=== PATIENT | male | born 1990 | race African-American/Black ===

== ENCOUNTER 2016-05-13 22:16 | Emergency (ER) | payer OTHER ==
[~2016-05-13] VITALS: Ht 188 cm; Wt 77.1 kg
[2016-05-13 22:43] VITALS: BP 145/99
--- NOTE | 2016-05-13 23:33 | ED UPPER/LOWER EXTREMITY COMPL ---
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 NOT VISUALIZED IN TRIAGE. CURRENT WITH TETANUS Triage Nurses Notes Reviewed? yes Onset: Abrupt Duration: constant Timing: recent history Severity: mild Severity Numbers: 3 HPI: Patient is a 26-year-old male with an unremarkable past medical history which tetanus up-to-date and presents emergency room that yesterday evening he ACCIDENTLY cut the lateral aspect of his fifth digit of his RIGHT hand with a carving tool resulting in 2 lacerations which he states that he's been APPLYING second skin on the region. Patient presents today for concerns by his for suture repair. HE IS left arm dominant tetanus is up-to-date (JOHNATHAN LOGAN) Past History Travel History Traveled to [place] past 21 day No Medical History Any Pertinent Medical History? 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 No (JOHNATHAN LOGAN) Review of Systems Review of Systems Constitutional: Reports: no symptoms. EENTM: Reports: no symptoms. Respiratory: Reports: no symptoms. Cardiovascular: Reports: no symptoms. Gastrointestinal/Abdominal: Reports: no symptoms. Genitourinary: Reports: no symptoms. Musculoskeletal: Reports: see HPI. Skin: Reports: see HPI. Neurological/Psychological: Reports: no symptoms. Hematologic/Endocrine: Reports: see HPI, bleeding. Immunological: Reports: no symptoms. All Other Systems: Reviewed and Negative (JOHNATHAN LOGAN) Physical Exam Physical Exam General Appearance: no apparent distress, alert Neurologic/Tendon: normal sensation, normal motor functions, normal tendon functions, responds to pain, no evidence tendon injury, no pulse deficit Skin: normal color, warm/dry Comments: Well-developed well-nourished no apparent distress. HEENT: Atraumatic, extraocular motion intact Neck: Supple, no lymphadenopathy Back: Nontender Respiratory: No respiratory distress Extremities: N Right fifth digit of the hand full active range of motion full resisted range of motion no tendon deficit see diagram below Neuro: Alert and oriented x3 Psych: Mood affect normal, normal memory normal judgment. Diagram Hands Front 1) 5 mm mildly gaping superficial laceration noted No active bleeding 2) 5 mm mildly gaping superficial laceration noted no active bleeding noted (JOHNATHAN LOGAN) Progress Differential Diagnosis: arterial insufficiency, compartment syndrome, contusion, dislocation, DVT, fracture, gout, septic arthritis, sprain, tendon injury Plan of Care: Due to over 24 hours history of open wound that patient could deteriorate with suture placement and which I applied chlorhexidine to the region for cleaning and applied bacitracin bandage. Patient was strongly advised to monitor for signs infection HE WILL return to the emergency room and he will comply. No concern of fracture no concerns of tendon deficit (JOHNATHAN LOGAN) Departure Departure Disposition: HOME OR SELF CARE Condition: Stable Clinical Impression Primary Impression: Finger laceration Referrals: MJ JASON MD (PCP/Family) Additional Instructions: As discussed begin to apply bacitracin to the area once a day for the following 5 days then leave wound open for improvement of healing. If you note signs of infection redness, pain, swelling, discharge return to the emergency room. Follow-up with your primary care doctor in 1 week for recheck of symptoms. Try to keep area dry and clean as YOU can. Departure Forms: Customer Survey General Discharge Information Prescriptions: Current Visit Scripts No Known Home Medications (JOHNATHAN LOGAN) PA/DIRECTOR OF LEARNING Co-Sign Statement Statement: ED Attending supervision documentation- [] I saw and evaluated the patient. I have also reviewed all the pertinent lab results and diagnostic results. I agree with the findings and the plan of care as documented in the PA's/DIRECTOR OF LEARNING's documentation. [x] I have reviewed the ED Record and agree with the PA's/DIRECTOR OF LEARNING's documentation. [] Additions or exceptions (if any) to the PAs/DIRECTOR OF LEARNING's note and plan are summarized below: [] (JUAN PABLO STOKES,CAREY)
== END 2016-05-13 23:48 ==
LOC: ERH 22:16
DX: S61.217A Laceration without foreign body of left little finger without damage to nail, initial encounter (principal); W27.8XXA Contact with other nonpowered hand tool, initial encounter

== ENCOUNTER 2016-07-08 22:46 | Emergency (ER) | payer OTHER ==
[~2016-07-08] VITALS: Ht 188 cm; Wt 77.1 kg
--- NOTE | 2016-07-08 22:59 | ED CARDIAC/CP/PALPITATIONS ---
History of Present Illness General Chief Complaint: General Adult Stated Complaint: CHEST "POUNDING", FREQUENT URINATION,FEEL HOT [id number] Source: patient Exam Limitations: no limitations Vital Signs & Intake/Output Vital Signs & Intake/Output Vital Signs Date Time Temp Pulse Resp B/P Pulse O2 O2 Flow FiO2 Ox Delivery Rate 07/09 0222 97.0 72 18 126/82 100 Room Air 07/09 0000 99 Room Air 07/08 2253 98.7 86 18 158/96 99 Room Air ED Intake and Output 07/09 0000 07/08 1200 Intake Total Output Total Balance Patient 170 lb Weight Allergies Coded Allergies: NO KNOWN ALLERGIES (05/16/15) Reconcile Medications No Known Home Medications Triage Note: PT TO TRIAGE WITH C/O CHEST PRESSURE AND PALPITATIONS ON/OFF [id number]. PT DENIES SOB, DENIES ANY PAIN. REPORTS FREQUENT URINATION. EKG DONE IN [place]. VSS. KASIA MD IN TRIAGE FOR PT EVAL. Triage Nurses Notes Reviewed? yes Onset: Gradual Duration: week(s): Timing: recent history Quality/Severity: mild, moderate Location: central Radiation: no radiation Activities at Onset: none Prior Chest Pain/Card Workup: no prior chest pain Modifying Factors: Improves With: rest. Associated Symptoms: "Pounding" HPI: 26yo gentleman with 2 weeks of intermittent palpitations. "It feels like I have a pounding in my chest." He notes no diaphoresis, chest pain. He notes that he had been drinking an herbal tea that he stopped drinking 2 weeks ago. He notes he has been under stress. He denies alcohol, drugs, or excessive caffeine. Past History Travel History Traveled to [place] past 21 day No Medical History Any Pertinent Medical History? 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 No Review of Systems Review of Systems Constitutional: Reports: no symptoms. EENTM: Reports: no symptoms. Respiratory: Reports: no symptoms. Cardiovascular: Reports: no symptoms. GI: Reports: no symptoms. Genitourinary: Reports: no symptoms. Musculoskeletal: Reports: no symptoms. Skin: Reports: no symptoms. Neurological/Psychological: Reports: no symptoms. Hematologic/Endocrine: Reports: no symptoms. Immunologic/Allergic: Reports: no symptoms. All Other Systems: Reviewed and Negative Physical Exam Physical Exam General Appearance: well developed/nourished, no apparent distress Head: atraumatic, normal appearance Eyes: Bilateral: normal appearance. Ears, Nose, Throat: normal pharynx, normal ENT inspection Neck: normal inspection, supple, full range of motion Cardiovascular: regular rate/rhythm Gastrointestinal: normal bowel sounds, soft, non-tender, no organomegaly Back: normal inspection, normal range of motion Extremities: normal inspection, normal capillary refill Neurologic/Psych: no motor/sensory deficits, awake, alert, oriented x 3 Skin: intact, normal color, warm/dry Core Measures ACS in differential dx? No Severe Sepsis Present: No Septic Shock Present: No Progress Differential Diagnosis: pac's, pvc's, tachyarrhythmias vs other. Plan of Care: Orders Procedure Date/time Status THYROID STIMULATING HORMONE 07/08 2299 Complete TROPONIN LEVEL 07/08 2299 Complete D-DIMER 07/08 2299 Complete COMPREHENSIVE METABOLIC PANEL 07/08 2299 Complete CBC WITHOUT DIFFERENTIAL 07/08 2299 Complete EKG 07/09 2247 Active Laboratory Tests 07/08/16 2305: Anion Gap 15, Estimated GFR > 60, BUN/Creatinine Ratio 11.1, Glucose 87, Calcium 10.1, Total Bilirubin 0.7, AST 20, ALT 34, Alkaline Phosphatase 85, Troponin I < 0.01, Total Protein 7.9, Albumin 4.5, Globulin 3.4, Albumin/Globulin Ratio 1.3, TSH 4.120, D-Dimer 688 H, CBC w Diff NO MAN DIFF REQ, RBC 4.49 L, MCV 95.7 H, MCH 32.7 H, RDW 13.4, MPV 8.3, Gran % 38.2 L, Lymphocytes % 49.5, Monocytes % 8.3, Eosinophils % 3.4, Basophils % 0.6, Absolute Granulocytes 1.7, Absolute Lymphocytes 2.3, Absolute Monocytes 0.4, Absolute Eosinophils 0.2, Absolute Basophils 0, PUBS MCHC 34.1 Diagnostic Imaging: Viewed by Me: Radiology Read. Discussed w/RAD: Radiology Read. Radiology Impression: CT ANGIO... NO PE CXR Impression: no acute abnormality, no infiltrates, normal size heart, normal mediastinum Initial ED EKG: normal axis, normal intervals, normal p-waves, normal QRS complex, normal sinus rhythm Comments: PATIENT: OSMAN DEY PRESENT AGE: 26 PATIENT ACCOUNT NO: [id number] : 89 LOCATION: ER ORDERING PHYSICIAN: RONIT PEDROZA MD SERVICE DATE: 07/08/16 EXAM TYPE: RAD - XRY-PORTABLE CHEST XRAY EXAMINATION: XR PORTABLE CHEST CLINICAL INFORMATION: Palpitation PATIENT: OSMAN DEY PRESENT AGE: 26 PATIENT ACCOUNT NO: [id number] : 89 LOCATION: [facility] ORDERING PHYSICIAN: RONIT PEDROZA MD SERVICE DATE: 07/09/16 EXAM TYPE: CAT - CTA CHEST-PULMONARY EMBOLISM EXAMINATION: CT ANGIOGRAM OF THE CHEST WITH AND WITHOUT CONTRAST (CT PULMONARY ANGIOGRAM FOR PE) CLINICAL INFORMATION: Elevated d-dimer. Evaluate for acute pulmonary embolism. COMPARISON: No relevant prior imaging available. TECHNIQUE: Prior to contrast administration, noncontrast localization images were obtained. Subsequently, multidetector volumetric imaging was performed from the thoracic inlet to below the diaphragms following the administration of 90 mL Optiray 380 intravenous contrast. No contrast reaction reported. Sagittal, coronal, and MIP oblique sagittal reformatted images were obtained on the CT workstation, uploaded to PACS, and reviewed. Total exam dose-length product 333.65 mGy-cm. FINDINGS: The timing of the contrast injection provides adequate opacification of the pulmonary arterial vasculature. There is no central luminal filling defect to suggest the presence of an acute pulmonary embolism. Lungs are clear and well expanded. There is no worrisome pulmonary mass or nodule. There is no pleural effusion or pneumothorax. The trachea and major airways are widely patent. Visualized portions of the thoracic outlet including the thyroid gland are unremarkable. The heart and the thoracic aorta are unremarkable. No pericardial effusion. The origins of the major aortic branches are widely patent. The chest wall is intact. No evidence of acute fracture. No worrisome lytic or blastic osseous lesion. IMPRESSION: Normal CT angiogram of the chest. VTE: Negative. DICTATED BY: YEIMI BREWER MD DATE/TIME DICTATED:07/09/16146 JIGSAWYER:EMMA DATE/TIME TRANSCRIBED:07/09/16146 CONFIDENTIAL, DO NOT COPY WITHOUT APPROPRIATE AUTHORIZATION. <Electronically signed in Other Vendor System> SIGNED BY: YEIMI BREWER MD 07/09 0154 COMPARISON: None TECHNIQUE: Portable AP view of the chest was obtained. FINDINGS: Normal cardiomediastinal silhouette and pulmonary vascularity. Clear lungs. No pleural effusions or pneumothorax. The visualized bones are normal. IMPRESSION: No acute cardiopulmonary finding. DICTATED BY: SIGRID CRUM MD DATE/TIME DICTATED:07/08/162353 JIGSAWYER:EMMA DATE/TIME TRANSCRIBED:07/08/162353 CONFIDENTIAL, DO NOT COPY WITHOUT APPROPRIATE AUTHORIZATION. <Electronically signed in Other Vendor System> SIGNED BY: SIGRID CRUM MD 07/08/16 Departure Departure Disposition: HOME OR SELF CARE Condition: Stable Clinical Impression Primary Impression: Palpitations Referrals: MJ JASON MD (PCP/Family) Departure Forms: Customer Survey General Discharge Information Prescriptions: Current Visit Scripts No Known Home Medications Comments pt stable in ED, low risk... ct angio negative for PE. troponin negative... pt referred to petrophysical engineer... close follow up encouraged. Critical Care Note Critical Care Note Critical Care Time: non-applicable
[2016-07-08 23:13] LABS: ABSOLUTE BASOPHIL COUNT 0 /CUMM (0.0-0.2); ABSOLUTE EOSINOPHIL COUNT 0.2 /CUMM (0.0-0.7); ABSOLUTE GRANULOCYTE CT 1.7 /CUMM (1.4-6.5); ABSOLUTE LYMPH COUNT 2.3 /CUMM (1.2-3.4); ABSOLUTE MONOCYTE COUNT 0.4 /CUMM (0.10-0.60); BASOPHIL % 0.6 % (0.0-2.0); EOSINOPHIL % 3.4 % (0-5); MEAN CORPUSCULAR HGB 32.7 PG (27.0-31.0); MEAN CORPUSCULAR HGB CONC 34.1 G/DL (33.0-37.0); MEAN CORPUSCULAR VOLUME 95.7 FL (80.0-94.0); MEAN PLATELET VOLUME 8.3 FL (7.4-10.4); PLATELET COUNT 212 /CUMM (130-400); RBC DISTRIBUTION WIDTH 13.4 % (11.5-14.5); RED BLOOD CELL CT 4.49 /CUMM (4.70-6.10); WHITE BLOOD CELL COUNT 4.6 /CUMM (4.8-10.8)
[2016-07-08 23:15] LABS: GRANULOCYTE % 38.2 % (42.2-75.2)
--- NOTE | 2016-07-08 23:58 | RADIOLOGY REPORT ---
EXAMINATION: XR PORTABLE CHEST CLINICAL INFORMATION: Palpitation COMPARISON: None TECHNIQUE: Portable AP view of the chest was obtained. FINDINGS: Normal cardiomediastinal silhouette and pulmonary vascularity. Clear lungs. No pleural effusions or pneumothorax. The visualized bones are normal. IMPRESSION: No acute cardiopulmonary finding.
--- NOTE | 2016-07-09 01:54 | CT SCAN REPORT ---
EXAMINATION: CT ANGIOGRAM OF THE CHEST WITH AND WITHOUT CONTRAST (CT PULMONARY ANGIOGRAM FOR PE) CLINICAL INFORMATION: Elevated d-dimer. Evaluate for acute pulmonary embolism. COMPARISON: No relevant prior imaging available. TECHNIQUE: Prior to contrast administration, noncontrast localization images were obtained. Subsequently, multidetector volumetric imaging was performed from the thoracic inlet to below the diaphragms following the administration of 90 mL Optiray 380 intravenous contrast. No contrast reaction reported. Sagittal, coronal, and MIP oblique sagittal reformatted images were obtained on the CT workstation, uploaded to PACS, and reviewed. Total exam dose-length product 333.65 mGy-cm. FINDINGS: The timing of the contrast injection provides adequate opacification of the pulmonary arterial vasculature. There is no central luminal filling defect to suggest the presence of an acute pulmonary embolism. Lungs are clear and well expanded. There is no worrisome pulmonary mass or nodule. There is no pleural effusion or pneumothorax. The trachea and major airways are widely patent. Visualized portions of the thoracic outlet including the thyroid gland are unremarkable. The heart and the thoracic aorta are unremarkable. No pericardial effusion. The origins of the major aortic branches are widely patent. The chest wall is intact. No evidence of acute fracture. No worrisome lytic or blastic osseous lesion. IMPRESSION: Normal CT angiogram of the chest. VTE: Negative.
[2016-07-09 02:22] VITALS: BP 126/82
== END 2016-07-09 02:24 ==
LOC: ERH 22:46
PROVIDERS: Pediatrics
DX: R00.2 Palpitations (principal)
CPT/HCPCS: 93005; 93010

== ENCOUNTER 2016-09-12 14:57 | Emergency (ER) | payer OTHER ==
[~2016-09-12] VITALS: Ht 188 cm; Wt 72.6 kg
[2016-09-12 15:01] VITALS: BP 135/73
--- NOTE | 2016-09-12 15:48 | ED GENERAL ADULT ---
History of Present Illness General Chief Complaint: General Adult Stated Complaint: FREQUENT URINATION Source: patient Exam Limitations: no limitations Vital Signs & Intake/Output Vital Signs & Intake/Output Vital Signs Date Time Temp Pulse Resp B/P B/P Pulse O2 O2 Flow FiO2 Mean Ox Delivery Rate 09/12 1625 99 09/12 1615 Room Air 09/12 1501 98.9 100 15 135/73 100 Room Air Allergies Coded Allergies: NO KNOWN ALLERGIES (UNKNOWN 09/12/16) Reconcile Medications No Known Home Medications Triage Note: PT TO ED FOR FREQUENT URINATION X 1 WEEK AND DEHYDRATION "IM DRINKING A LOT OF WATER". Triage Nurses Notes Reviewed? yes Onset: Abrupt Duration: day(s): Timing: no prior history HPI: 09/12/16 3:48 PM 26-year-old man presents to the emergency department complaining of chest pain and urinary frequency. The patient states that he is constantly urinating he also admits to polydipsia. He also admits to some nausea but no vomiting. No abdominal pain. No fever. No cough. He says his chest pain has been intermittent over the past several days. The pain is in the left side of his chest. It is left subcostal. The onset of the symptoms was abrupt, the duration has been several days, the severity is significant as his symptoms required him to come to the emergency department for care. Past History Travel History Traveled to [place] past 21 day No Medical History Any Pertinent Medical History? 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 No (GM DM) Review of Systems Review of Systems Constitutional: Denies: fever. EENTM: Reports: no symptoms. Respiratory: Denies: cough, short of breath. Cardiovascular: Reports: chest pain. Denies: palpitations. GI: Denies: abdominal pain. Genitourinary: Reports: frequency. Musculoskeletal: Reports: no symptoms. Skin: Denies: rash. Neurological/Psychological: Reports: no symptoms. Hematologic/Endocrine: Reports: no symptoms. Immunologic/Allergic: Reports: no symptoms. Physical Exam Physical Exam General Appearance: well developed/nourished, alert, awake, anxious Head: atraumatic, normal appearance Eyes: Bilateral: normal appearance, PERRL, EOMI. Ears, Nose, Throat: normal pharynx, normal ENT inspection Neck: normal inspection, supple Respiratory: normal breath sounds, chest non-tender, no respiratory distress Cardiovascular: regular rate/rhythm Peripheral Pulses: 4+ radial (R), 4+ radial (L) Gastrointestinal: non-tender Back: normal range of motion Extremities: normal inspection, normal range of motion, no edema Neurologic/Psych: no motor/sensory deficits, awake, alert, oriented x 3 Skin: intact, normal color, warm/dry Core Measures ACS in differential dx? No CVA/TIA Diagnosis: No Severe Sepsis Present: No Septic Shock Present: No Progress Differential Diagnoses I considered the following diagnoses in my evaluation of the patient: [ Costochondritis, asthma, diabetes, ureteritis, pyelonephritis, pneumothorax, asthma, pneumonia] Plan of Care: Orders Procedure Date/time Status EKG 09/12 1709 Active CULTURE,URINE 09/12 1548 Active CHLAMYDIA-GC DNA PROBE 09/12 1548 Active URINALYSIS 09/12 1548 Complete TROPONIN LEVEL 09/12 1548 Complete LYME TITRE 09/12 1548 Active D-DIMER 09/12 1548 Complete COMPREHENSIVE METABOLIC PANEL 09/12 1548 Complete CBC WITHOUT DIFFERENTIAL 09/12 1548 Complete Current Medications Sig/[place] Start time Last Medication Dose Stop Time Status Admin Azithromycin 1,000 MG ONCE ONE 09/12 183 UNVr (Zithromax) 09/12 183 Ceftriaxone Sodium 250 MG ONCE ONE 09/12 183 UNir (Rocephin) 09/12 1831 Laboratory Tests 09/12/16 1611: Anion Gap 11, Estimated GFR > 60, BUN/Creatinine Ratio 4.0 L, Glucose 68, Calcium 10.3 H, Total Bilirubin 0.5, AST 23, ALT 40, Alkaline Phosphatase 75, Troponin I < 0.01, Total Protein 8.1, Albumin 4.7, Globulin 3.4, Albumin/ Globulin Ratio 1.4, D-Dimer High Sensitivty < 200, CBC w Diff NO MAN DIFF REQ, RBC 4.45 L, MCV 97.0 H, MCH 32.0 H, RDW 13.6, MPV 8.1, Gran % 49.0, Lymphocytes % 39.3, Monocytes % 8.9, Eosinophils % 2.2, Basophils % 0.6, Absolute Granulocytes 1.9, Absolute Lymphocytes 1.5, Absolute Monocytes 0.4, Absolute Eosinophils 0.1, Absolute Basophils 0, PUBS MCHC 33.0, Lyme Disease Antibody Pending 09/12/16 1554: Urine Color STRAW, Urine Clarity CLEAR, Urine pH 6.5, Ur Specific [place] <= 1.005, Urine Protein NEG, Urine Ketones NEG, Urine Nitrite NEG, Urine Bilirubin NEG, Urine Urobilinogen 0.2, Ur Leukocyte Esterase NEG, Ur Microscopic EXAM NOT REQUIRED, Urine Hemoglobin NEG, Urine Glucose NEG Microbiology 09/12 1553 URINE ROUT: GC DNA Probe - RECD 09/12 1553 URINE ROUT: Chlamydia DNA Probe (MESHA) - RECD 09/12 1553 URINE ROUT: Urine Culture - RECD Initial ED EKG: PENDING Departure Departure Disposition: HOME OR SELF CARE Condition: Stable Clinical Impression Primary Impression: Chest pain Referrals: MJ JASON MD (PCP/Family) Departure Forms: Customer Survey General Discharge Information Prescriptions: Current Visit Scripts No Known Home Medications Comments 09/12/16 The patient's labs are unremarkable. He has mild leukopenia. D-dimer is negative. Troponin is negative. EKG shows ST segment elevation consistent with early repolarization. There is no significant change to the old EKG. I also reviewed the EKGs with the on-call area development consultant Dr. Boyd who was in agreement that the EKG shows early repolarization. The patient says he does feel a flowing of blood intermittently. He is currently pain-free. He also complains of dysuria and admits to penile discharge. He was empirically treated with Rocephin and Zithromax. He was instructed to follow-up with a area development consultant to facilitate getting an outpatient echocardiogram. He has had intermittent episodes of the same symptoms in the past. Critical Care Note Critical Care Note Critical Care Time: non-applicable
--- NOTE | 2016-09-12 16:18 | RADIOLOGY REPORT ---
EXAMINATION: XR CHEST CLINICAL INFORMATION: Chest pain. COMPARISON: 07/08/2016. TECHNIQUE: 2 views of the chest were obtained. FINDINGS: The cardiomediastinal silhouette is unremarkable. The lungs and pleural spaces appear clear without evidence of congestion, consolidation, or significant appearing effusion or atelectasis. There is no evidence of pneumothorax or pulmonary edema. Included osseous structures appear largely unremarkable. IMPRESSION: Unremarkable examination.
[2016-09-12 16:22] LABS: ABSOLUTE BASOPHIL COUNT 0 /CUMM (0.0-0.2); ABSOLUTE EOSINOPHIL COUNT 0.1 /CUMM (0.0-0.7); ABSOLUTE GRANULOCYTE CT 1.9 /CUMM (1.4-6.5); ABSOLUTE LYMPH COUNT 1.5 /CUMM (1.2-3.4); ABSOLUTE MONOCYTE COUNT 0.4 /CUMM (0.10-0.60); BASOPHIL % 0.6 % (0.0-2.0); EOSINOPHIL % 2.2 % (0-5); HEMATOCRIT 43.1 % (42-52); MEAN PLATELET VOLUME 8.1 FL (7.4-10.4); PLATELET COUNT 208 /CUMM (130-400); RBC DISTRIBUTION WIDTH 13.6 % (11.5-14.5); RED BLOOD CELL CT 4.45 /CUMM (4.70-6.10); WHITE BLOOD CELL COUNT 3.9 /CUMM (4.8-10.8)
[2016-09-12] MEDS ORDERED: PROAIR HFA8.5 GM INH (18:24)
[2016-09-12] MEDS ORDERED: NAPROXEN500 M2 PO (18:24)
== END 2016-09-12 18:29 ==
LOC: ERH 14:57
PROVIDERS: Emergency Medicine
DX: R07.9 Chest pain, unspecified (principal); R11.0 Nausea; R63.1 Polydipsia
CPT/HCPCS: 1263; 86618; 81003; 87086; 87491; 87591; 93005; 93010; J0456; J0696